=== PATIENT | female | born 1965 | race Hispanic/Latino ===

== ENCOUNTER 2018-07-30 06:25 | Day surgery (SDC) | payer OTHER ==
[2018-07-29 13:12] LABS: Absolute Lymphocytes (CBC) 1.6 K/uL (0.7-4.9); Absolute Monocytes 0.6 K/uL (0.1-1.3); Absolute Neutrophil 4.2 K/uL (1.8-8.0); Eosinophils % 1.4 % (0-4.4); Hematocrit 40.8 % (36.0-45.0); Lymphocytes % 24.3 % (15.3-44.8); MPV 8.2 fL (7.6-11.3); Monocytes % 9.3 % (3.3-12.3); RBC Red Blood Cell Count 4.67 M/uL (3.86-4.86)
[2018-07-30] MEDS ORDERED: Ringers Lactate 1,000 ML IV ONE (06:46)
[2018-07-30] MEDS ORDERED: LIDOCAINE 1% MPF 5 ML VIAL ONE ×2 (06:48→07:10)
[2018-07-30] MEDS ORDERED: NA CHLORIDE 0.9% 1,000 ML ONE (06:59)
[2018-07-30] MEDS ORDERED: LIDOCAINE 1% W/EPI 1:100,000 MDV 50 ML VIAL ONE (06:59)
[2018-07-30] MEDS ORDERED: MIDAZOLAM HCL 2 MG/2 ML INJ ONE (07:09)
[2018-07-30] MEDS ORDERED: PROPOFOL 200 MG/20 ML VIAL IV ONE (07:09)
[2018-07-30] MEDS ORDERED: FENTANYL CITR 100 MCG/2 ML ONE (07:09)
[2018-07-30] MEDS ORDERED: SILVER NITRATE 1 APPL TOP ONE (07:17)
[2018-07-30] MEDS ORDERED: KETOROLAC 30 MG/ML INJ ONE (07:41)
[2018-07-30] MEDS ORDERED: ONDANSETRON 4 MG/2 ML VIAL ONE (07:49)
--- NOTE | 2018-07-30 07:52 | P.BOP ---
Preoperative diagnosis: Post menopausal bleeding Postoperative diagnosis: same, polyp Primary procedure: Hysteroscopy, D&C Estimated blood loss: Less than 5ml Anesthesia: General Complications: None Transferred to: Recovery Room Condition: Good
[2018-07-30] MEDS: MEPERIDINE HCL 50 MG/ML AMP ONE ×2 (07:54→07:59)
[2018-07-30] MEDS ORDERED: MEPERIDINE HCL 50 MG/ML AMP ONE (08:15)
[2018-07-30] MEDS ORDERED: PROMETHAZINE 25 MG/ML VIAL ONE (08:23)
--- NOTE | 2018-07-30 18:58 | DS ---
Date of Discharge: 07/30/2018 Final Hospital Discharge Diagnoses: 1.Postmenopausal vaginal bleeding. 2.Probable endometrial polyp. Hospital Course: The patient is a 52-year-old female, 3, para 1-0-2-1, status post menopause, who underwent hysteroscopy, D and C for an excision of endometrial polyp for postmenopaus al bleeding. She was dismissed to be seen back in my office in 2 weeks. Take ibuprofen for pain rel ief with usual post D and C activity restrictions. Lab work included hemoglobin and hematocrit of 13.7 and 40.8. AIMEE/JACK Voice ID: [id number] Report ID: [id number]
--- NOTE | 2018-07-30 18:58 | OP ---
Surgeon: Forrest Lopez MD Preoperative Diagnosis: Postmenopausal bleeding. Procedures: Hysteroscopy, excision of endometrial polyp, dilatation and curettage uterine endometriu m. Postoperative Diagnoses: Postmenopausal bleeding. Endometrial polyp. Description Of Procedure: After satisfactory level of general anesthesia was obtained, the patient w as prepped and draped in the usual fashion in high leg holders for vaginal surgery. Weighted speculu m was placed in the posterior vagina. Cervix visualized and grasped with single-tooth tenaculum. In troducing the hysteroscope, a small right endometrial polyp was noted. This was excised with a Shear s and grasping forceps through the hysteroscope. Otherwise, no other abnormalities of the endometriu m were noted. The hysteroscope removed. Curettage of the endometrium was productive of minimal tiss ue. The patient was awakened, taken to recovery room in satisfactory condition. Anesthesia: Tracy Daniel CRNA and Dr. Tiburcio Begum. AIMEE/JACK Voice ID: [id number] Report ID: [id number]
== END 2018-07-30 09:49 | disposition home or self-care (01) ==
LOC: OR 06:25
PROVIDERS: ATTEND Specialist
PROC: 0UDB7ZX Extraction of Endometrium, Via Natural or Artificial Opening, Diagnostic (ICD-10-PCS; 2018-07-30)
PROC: 0UB98ZX Excision of Uterus, Via Natural or Artificial Opening Endoscopic, Diagnostic (ICD-10-PCS; principal; 2018-07-30 07:30)
DX: N95.0 Postmenopausal bleeding (principal); N84.0 Polyp of corpus uteri; Z88.2 Allergy status to sulfonamides; Z88.8 Allergy status to other drugs, medicaments and biological substances; Z80.3 Family history of malignant neoplasm of breast; Z83.3 Family history of diabetes mellitus
CPT/HCPCS: 36415; 85025; 88305; J2175; J2250; J2405; J2550; J2704; J3010; J7030

== ENCOUNTER 2023-02-04 14:11 | Emergency (ER) | payer OTHER ==
[2023-02-04] MEDS ORDERED: dexAMETHasone 10 MG/ML VIAL ONE (15:03)
[2023-02-04] MEDS ORDERED: ONDANSETRON 4 MG/2 ML VIAL ONE (15:03)
[2023-02-04] MEDS ORDERED: MORPHINE 4 MG/ML SYR ONE ×2 (15:03→17:07)
[2023-02-04] MEDS ORDERED: KETOROLAC 30 MG/ML INJ ONE (15:03)
--- NOTE | 2023-02-04 15:13 | RAD REPORT ---
EXAM DESCRIPTION: CTSpine Lumbar Wo Con02/04/2023 2:55 pm CLINICAL HISTORY: Right leg radiculopathy. Back pain COMPARISON: None TECHNIQUE: Computed axial tomography lumbar spine was obtained with coronal and sagittal reconstruct ion. All CT scans are performed using dose optimization technique as appropriate and may include automated exposure control or mA/KV adjustment according to patient size. FINDINGS: L1-2 and L2-3 are unremarkable Mild spondylosis L3-4 Small disc bulge L4-5. Ligamentum flavum and facet hypertrophy. Thecal sac 8 millimeters. Mild narrow ing of the neural foramina bilaterally L5-S1 disc is thinned. Vacuum phenomena. Osteophytes. Disc bulge. Thecal sac measures approximately 7 millimeters. Moderate to marked narrowing of the neural foramina bilaterally. Facet hypertrophy No fracture or dislocation IMPRESSION: Negative for a lumbar fracture. Spondylosis most marked L5-S1 resulting in mild to moderate central and moderate to marked bilateral foraminal stenosis Nonemergent MRI may be helpful for further evaluation
--- NOTE | 2023-02-04 17:15 | ER ---
Nurse's Notes [facility] Name: Bobby Murillo Age: 57 yrs Sex: Female : 1965 Arrival Date: 02/04/2023 Time: 14:11 Bed 20 Private MD: Haley Holcomb Diagnosis: Other intervertebral disc disorders, lumbar region;Radiculopathy, lumbosacral region Presentation: 02/04 14:24 Chief complaint: Patient states: Low back pain that radiates to R leg, started on ph Thursday, was seen at PCP and prescribed Tylenol 3 and a muscle relaxer but meds are not helping, also reports nausea r/t pain. Coronavirus screen: Vaccine status: Patient reports receiving the 2nd dose of the covid vaccine. Ebola Screen: No symptoms or risks identified at this time. Initial Sepsis Screen: Does the patient meet any 2 criteria? No. Patient's initial sepsis screen is negative. Does the patient have a suspected source of infection? No. Patient's initial sepsis screen is negative. Risk Assessment: Do you want to hurt yourself or someone else? Patient reports no desire to harm self or others. Onset of symptoms was February 04, 2023. 14:24 Method Of Arrival: Wheelchair ph 14:24 Acuity: SPENCER 4 ph Triage Assessment: 14:38 General: Appears in no apparent distress. uncomfortable, Behavior is cooperative. Pain: db Complains of pain in back. 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 - Social history:: Smoking status: Patient denies any tobacco usage or history of. - Family history:: not pertinent. - Hospitalizations: : No recent hospitalization is reported. Screenin:00 [facility] ED Fall Risk Assessment (Adult) History of falling in the last 3 months, db including since admission No falls in past 3 months (0 pts) Confusion or Disorientation No (0 pts) Intoxicated or Sedated No (0 pts) Impaired Gait No (0 pts) Mobility Assist Device Used No (0 pt) Altered Elimination No (0 pt) Score/Fall Risk Level 0 - 2 = Low Risk Oriented to surroundings, Maintained a safe environment. Abuse screen: Denies threats or abuse. Denies injuries from another. Nutritional screening: No deficits noted. Tuberculosis screening: No symptoms or risk factors identified. Assessment: 14:45 Reassessment: Patient appears in no apparent distress at this time. Patient and/or db family updated on plan of care and expected duration. Pain level reassessed. Patient is alert, oriented x 3, equal unlabored respirations, skin warm/dry/pink. BACK PAIN. Musculoskeletal: Reports pain in back. 14:50 Reassessment: patient is in CT. db 15:30 Reassessment: Patient appears in no apparent distress at this time. Patient and/or db family updated on plan of care and expected duration. Pain level reassessed. Patient is alert, oriented x 3, equal unlabored respirations, skin warm/dry/pink. 16:30 Reassessment: Patient appears in no apparent distress at this time. Patient and/or db family updated on plan of care and expected duration. Pain level reassessed. Patient is alert, oriented x 3, equal unlabored respirations, skin warm/dry/pink. 17:33 Reassessment: Patient appears in no apparent distress at this time. Patient and/or db family updated on plan of care and expected duration. Pain level reassessed. Patient is alert, oriented x 3, equal unlabored respirations, skin warm/dry/pink. Patient states feeling better. Patient states symptoms have improved. General: Appears in no apparent distress. comfortable, Behavior is calm, cooperative. Neuro: Level of Consciousness is awake, alert, obeys commands, Oriented to person, place, time, situation. Vital Signs: 14:24 BP 148 / 89; Pulse 82; Resp 24; Temp 97.3; Pulse Ox 98% on R/A; Weight 123.38 kg; ph Height 5 ft. 4 in. ; Pain 10/10; 15:12 BP 141 / 78; Pulse 61; Resp 16; Pulse Ox 97% on R/A; db 16:00 BP 127 / 74; Pulse 68; Resp 16; Pulse Ox 98% on R/A; db 17:00 BP 119 / 63; Pulse 72; Resp 16; Pulse Ox 100% on R/A; db 14:24 Body Mass Index 46.69 (123.38 kg, 162.56 cm) ph 14:24 Pain Scale: Adult ph ED Course: 14:12 Patient arrived in ED. mr 14:12 Haley Holcomb is Private Physician. mr 14:26 Triage completed. ph 14:27 Arm band placed on Patient placed in an exam room. ph 14:30 Wilian Graham MD is Attending Physician. rn 14:38 Rufina Barrios, TIFFANY is Primary Nurse. db 14:57 CT Lumbar Spine Wo Con In Process Unspecified. EDMS 17:34 Patient has correct armband on for positive identification. Bed in low position. Call db light in reach. Side rails up X2. Provided Education on: DISCHARGE. 17:34 No provider procedures requiring assistance completed. IV discontinued, intact, db bleeding controlled, No redness/swelling at site. Administered Medications: 15:20 Drug: Decadron - Dexamethasone IVP 10 mg Route: IVP; Site: right antecubital; db 17:21 Follow up: Response: No adverse reaction db 15:22 Drug: Ondansetron IVP 4 mg Route: IVP; Site: right antecubital; db 17:20 Follow up: Response: No adverse reaction db 15:25 Drug: morphine IVP or IV 4 mg Route: IVP; Infused Over: 4 mins; Site: right antecubital;db 17:20 Follow up: Response: No adverse reaction db 15:28 Drug: Ketorolac IVP 30 mg Route: IVP; Site: right antecubital; db 17:21 Follow up: Response: No adverse reaction db 17:00 Drug: morphine IVP or IV 4 mg Route: IVP; Infused Over: 4 mins; Site: right antecubital;db 17:31 Follow up: Response: No adverse reaction db Medication: 17:35 VIS not applicable for this client. db Outcome: 17:15 Discharge ordered by . rn 17:35 Discharged to home ambulatory, with family. db 17:35 Condition: stable 17:35 Discharge instructions given to patient, Instructed on discharge instructions, follow up and referral plans. Prescriptions given X 1. 17:36 Patient left the ED. db Signatures: Dispatcher [employer] [facility] Yesika Figueroa mr Wilian Graham MD MD rn Hall, Patricia, RN RN Rufina Barrios RN RN db
--- NOTE | 2023-02-04 17:16 | EDPHYS ---
Physician Documentation [facility] Name: Bobby Murillo Age: 57 yrs Sex: Female : 1965 Arrival Date: 02/04/2023 Time: 14:11 Bed 20 Private MD: Haley Holcomb ED Physician Wilian Graham HPI: 02/04 15:56 This 57 yrs old Female presents to ER via Wheelchair with complaints of Back rn Pain, Leg Pain. 15:56 The patient presents with pain that is acute, with no known mechanism of injury. The rn symptoms are located in the low back. 15:56 Onset: The symptoms/episode began/occurred 2 day(s) ago. The pain radiates to the right rn leg. Associated signs and symptoms: Pertinent negatives: abdominal pain, chest pain, fever, hematuria, incontinence, numbness, tingling, urinary retention, weakness. Modifying factors: The patient symptoms are alleviated by nothing, the patient symptoms are aggravated by any movement, bending, walking. Severity of symptoms: At their worst the symptoms were moderate, in the emergency department the symptoms are unchanged. The patient has experienced a previous episode. The patient has been recently seen by a physician:. Pt reports hx of back injury, recently doing a lot of lifting and gardening, 2 days ago started with right lower back pain and radiates down right leg, seen yesterday and prescribed pain meds and muscle relaxer. No weakness. No bowel/bladder problems. . 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 - Social history:: Smoking status: Patient denies any tobacco usage or history of. - Family history:: not pertinent. - Hospitalizations: : No recent hospitalization is reported. ROS: 15:56 Constitutional: Negative for fever, chills, and weight loss, Cardiovascular: Negative rn for chest pain, palpitations, and edema, Respiratory: Negative for shortness of breath, cough, wheezing, and pleuritic chest pain, Abdomen/GI: Negative for abdominal pain, nausea, vomiting, diarrhea, and constipation, Back: + back pain MS/Extremity: + RLE pain Skin: Negative for injury, rash, and discoloration, Neuro: Negative for headache, weakness, numbness, tingling, and seizure. Exam: 15:56 Constitutional: This is a well developed, well nourished patient who is awake, alert, rn uncomfortable, but ambulatory to bathroom Cardiovascular: Regular rate and rhythm. No pulse deficits. Respiratory: + hyperventilating with pain Abdomen/GI: soft, non-tender Back: No spinal tenderness. MS/ Extremity: Pulses equal, no cyanosis. Neurovascular intact. Full, normal range of motion. Equal circumference. Neuro: Awake and alert, GCS 15, oriented to person, place, time, and situation. Motor strength 5/5 in all extremities. Sensory grossly intact. Antalgic gait. Vital Signs: 14:24 BP 148 / 89; Pulse 82; Resp 24; Temp 97.3; Pulse Ox 98% on R/A; Weight 123.38 kg; ph Height 5 ft. 4 in. ; Pain 10/10; 15:12 BP 141 / 78; Pulse 61; Resp 16; Pulse Ox 97% on R/A; db 16:00 BP 127 / 74; Pulse 68; Resp 16; Pulse Ox 98% on R/A; db 17:00 BP 119 / 63; Pulse 72; Resp 16; Pulse Ox 100% on R/A; db 14:24 Body Mass Index 46.69 (123.38 kg, 162.56 cm) ph 14:24 Pain Scale: Adult ph MDM: 14:31 Patient medically screened. rn 16:37 ED course: approx 50% reduction in pain. Will repeat morphine and likely dc home after rn that. . 17:13 Differential diagnosis: arthritis, chronic back pain, Osteoarthritis spinal injury, rn sprain, radiculopathy, disc herniation. Data reviewed: vital signs, nurses notes, radiologic studies, CT scan, and as a result, I will discharge patient. Counseling: I had a detailed discussion with the patient and/or guardian regarding: the historical points, exam findings, and any diagnostic results supporting the discharge/admit diagnosis, radiology results, the need for outpatient follow up, to return to the emergency department if symptoms worsen or persist or if there are any questions or concerns that arise at home. Response to treatment: the patient's symptoms have markedly improved after treatment, and as a result, I will discharge patient. Special discussion: I discussed with the patient/guardian in detail that at this point there is no indication for admission to the hospital. It is understood, however, that if the symptoms persist or worsen the patient needs to return immediately for re-evaluation. Based on the history and exam findings, there is no indication for further emergent testing or inpatient evaluation. I discussed with the patient/guardian the need to see the back specialist for further evaluation of the symptoms. I discussed with the patient/guardian the need to see the primary care provider for further evaluation of the symptoms. 17:14 Special discussion: Further emergent ED testing is not indicated at this point in time. rn I discussed with the patient/guardian in detail the need to arrange with the PCP or specialist further outpatient testing, MRI. 02/04 14:43 Order name: CT Lumbar Spine Wo Con; Complete Time: 15:15 rn 02/04 14:43 Order name: IV Start; Complete Time: 15:02 rn Administered Medications: 15:20 Drug: Decadron - Dexamethasone IVP 10 mg Route: IVP; Site: right antecubital; db 17:21 Follow up: Response: No adverse reaction db 15:22 Drug: Ondansetron IVP 4 mg Route: IVP; Site: right antecubital; db 17:20 Follow up: Response: No adverse reaction db 15:25 Drug: morphine IVP or IV 4 mg Route: IVP; Infused Over: 4 mins; Site: right antecubital;db 17:20 Follow up: Response: No adverse reaction db 15:28 Drug: Ketorolac IVP 30 mg Route: IVP; Site: right antecubital; db 17:21 Follow up: Response: No adverse reaction db 17:00 Drug: morphine IVP or IV 4 mg Route: IVP; Infused Over: 4 mins; Site: right antecubital;db 17:31 Follow up: Response: No adverse reaction db Disposition Summary: 02/04/23 17:15 Discharge Ordered Location: Home rn Problem: new rn Symptoms: have improved rn Condition: Stable rn Diagnosis - Other intervertebral disc disorders, lumbar region rn - Radiculopathy, lumbosacral region rn Followup: rn - With: Private Physician - When: As needed - Reason: Recheck today's complaints, Re-evaluation by your physician Discharge Instructions: - Discharge Summary Sheet rn - Lumbosacral Radiculopathy rn - Pinched Nerve rn - Back Exercises rn Forms: - Medication Reconciliation Form rn - Thank You Letter rn - Antibiotic internal investigator - Prescription Opioid Use rn - Patient Portal Instructions rn Prescriptions: - Medrol (Castillo) 4 mg Oral Tablets, Dose Pack - take 1 tablet by ORAL route as directed - follow package instructions; 1 rn packet; Refills: 0, Product Selection Permitted Signatures: Dispatcher [employer] Wilian Moon MD MD rn Hall, Patricia, RN RN Rufina Mayorga RN RN db
[2023-02-04 17:43] VITALS: TEMP 97.3
[2023-02-04 17:57] VITALS: BP 119/63; O2SAT 100
== END 2023-02-04 17:36 | disposition home or self-care (01) ==
LOC: ER 14:11
DX: M54.17 Radiculopathy, lumbosacral region (principal); M51.86 Other intervertebral disc disorders, lumbar region; I10 Essential (primary) hypertension; Z88.1 Allergy status to other antibiotic agents; Z88.2 Allergy status to sulfonamides
CPT/HCPCS: 72131; J1100; J2405

== ENCOUNTER 2023-06-11 17:09 | Emergency (ER) | payer OTHER ==
--- OUTSIDE RECORDS SUMMARY | 2023-06-11 17:11 | XMS REPORT | Continuity of Care Document ---
:1965 Author Organization [facility] t Address [address] [place] [address] [place] [id number] Care Team Providers Name Role Phone Vincent Attending Clinician Unavailable Vincent Admitting Clinician Unavailable Payers Payer Name Policy Type Policy Number Effective Date Expiration Date [facility] [id number] (PPO) Problems This patient has no known problems. Allergies, Adverse Reactions, Alerts This patient has no known allergies or adverse reactions. Medications This patient has no known medications. Procedures This patient has no known procedures. Encounters Start End Encounter Admission Attending Care Care Encounter Source Date/Time Date/Time Type Type Clinicians Facility Department ID 2023-02-12 2023-02-12 Outpatient [facility] AO [id number] [place] 00:00:00 00:00:00 [facility] [id number] [facility] 2023-02-10 2023-02-10 Outpatient [facility] [id number] [place] 00:00:00 00:00:00 Davi [id number] [facility] Results This patient has no known results.
[2023-06-11] MEDS ORDERED: LIDOCAINE 1% MPF 5 ML VIAL ONE (17:32)
[2023-06-11] MEDS ORDERED: TDAP (DIPHTH,PERTUSS(ACELL),TET VAC) 0.5 ML VIAL IMVAC ONE (17:42)
--- NOTE | 2023-06-11 18:01 | ER ---
Nurse's Notes [facility] Name: Bobby Murillo Age: 57 yrs Sex: Female : 1965 Arrival Date: 06/11/2023 Time: 17:09 Bed 14 Private MD: Diagnosis: Laceration without foreign body of left thumb without damage to nail Presentation: 06/11 17:10 Chief complaint: Patient states: STATES CUT THUMB WHILE CUTTING CHEESE AT HOME. NOTED db LEFT THUMB LACERATION. GAUZE TO THUMB TO CONTROL BLEEDING. Coronavirus screen: Vaccine status: Patient reports receiving the 2nd dose of the covid vaccine. Client denies travel out of the [place] in the last 14 days. At this time, the client does not indicate any symptoms associated with coronavirus-19. Ebola Screen: Patient negative for fever greater than or equal to 101.5 degrees Fahrenheit, and additional compatible Ebola Virus Disease symptoms Patient denies exposure to infectious person. Patient denies travel to an Ebola-affected area in the 21 days before illness onset. No symptoms or risks identified at this time. Initial Sepsis Screen: Does the patient meet any 2 criteria? No. Patient's initial sepsis screen is negative. Does the patient have a suspected source of infection? No. Patient's initial sepsis screen is negative. Risk Assessment: Do you want to hurt yourself or someone else? Patient reports no desire to harm self or others. Onset of symptoms was June 11, 2023. 17:10 Method Of Arrival: Ambulatory db 17:10 Acuity: SPENCER 4 db Triage Assessment: 17:21 General: Appears in no apparent distress. comfortable, Behavior is calm, cooperative. db Pain: Complains of pain in left hand. Neuro: Level of Consciousness is awake, alert, obeys commands, Oriented to person, place, time, situation. Respiratory: Airway is patent Respiratory effort is even, unlabored, Respiratory pattern is regular, symmetrical. Historical: - Allergies: 17:21 Bactrim; db 17:21 Cephalexin; db 17:21 sulfamethoxazole-trimethoprim; db - Home Meds: 17:21 losartan oral [Active]; Furosemide Oral [Active]; db - PMHx: 17:21 Hypertensive disorder; Hypercholesterolemia; db Historical Immunization: - Administered Vaccines 18:04 Brantley PO 10 mg-325 mg 1 tabs db 17:32 Tetanus-Diphtheria Toxoid IM Adult 0.5 ml db Bpm Analyst: [employer]; Exp: Sat Dec 10 2024; Lot #: [id number]; Series: 1 of 1; Patient Consent: Obtained; Date/Time: ; Source Name: Bobby Murillo; Source Relationship: Self; Address Information: [address] [place] [address], [facility] [address]; ; Education: Provided; VIS Presented Date: ; VIS Publication: Tetanus/Diphtheria (Td) Vaccine VIS 10/28/2016 (historic) 17:24 Lidocaine Infiltration (1 %) 1 vials db - Immunization history:: Last tetanus immunization: unknown. - Social history:: Smoking status: Patient denies any tobacco usage or history of. Screenin:16 [facility] ED Fall Risk Assessment (Adult) History of falling in the last 3 months, db including since admission No falls in past 3 months (0 pts) Score/Fall Risk Level 0 - 2 = Low Risk Oriented to surroundings, Maintained a safe environment. Abuse screen: Denies threats or abuse. Denies injuries from another. Nutritional screening: No deficits noted. Tuberculosis screening: No symptoms or risk factors identified. Assessment: 17:23 Reassessment: SEE TRIAGE FOR INITIAL ASSESSMENT. db 18:16 Reassessment: Patient appears in no apparent distress at this time. Patient and/or db family updated on plan of care and expected duration. Pain level reassessed. Patient is alert, oriented x 3, equal unlabored respirations, skin warm/dry/pink. LACERATION REPAIR DONE. NEURO INTACT Patient states feeling better. Vital Signs: 17:10 BP 146 / 83; Pulse 97; Resp 18; Temp 97.9(TE); Pulse Ox 100% on R/A; Weight 122.47 kg; db Height 5 ft. 4 in. ; 18:07 BP 146 / 83; Pulse 96; Resp 16; Pulse Ox 98% on R/A; db 17:10 Body Mass Index 46.34 (122.47 kg, 162.56 cm) db ED Course: 17:10 Patient arrived in ED. rg4 17:11 Donna Pettit FNP-C is PHCP. kb 17:11 Odin Ortega MD is Attending Physician. kb 17:11 Attending Physician role handed off by Odin Ortega MD ms3 17:11 Phillip Duncan DO is Attending Physician. ms3 17:13 Rufina Barrios, TIFFANY is Primary Nurse. db 17:21 Triage completed. db 17:21 Arm band placed on Patient placed in an exam room. db 18:00 Assist provider with laceration repair on left hand, LEFT THUMB. Wound care: to db laceration located on left handLEFT THUMB Patient tolerated well. 18:16 Patient has correct armband on for positive identification. Bed in low position. Call db light in reach. Side rails up X 1. Provided Education on: DISCHARGE. 18:16 Patient did not have IV access during this emergency room visit. db Administered Medications: 17:24 Drug: Lidocaine Infiltration (1 %) 1 vials 5 ml Infiltration once; to bedside {Note: db GIVEN BY PROVIDER.} Volume: 5 ml; Route: Infiltration; 18:18 Follow up: Response: No adverse reaction db 17:32 Drug: Tetanus-Diphtheria Toxoid IM Adult 0.5 ml IM once; Provide Vaccine Information db Statement (VIS). {Bpm Analyst: [employer]; Exp: Sat Dec 10 2024; Lot #: [id number]; Series: 1 of ; Patient Consent: Obtained; Date/Time: ; Source Name: Bobby Murillo; Source Relationship: Self; Address Information: [address] [place] [address]; ; Education: Provided; VIS Presented Date: ; VIS Publication: Tetanus/Diphtheria (Td) Vaccine VIS 10/28/2016 (historic)} Route: IM; Site: right deltoid; 18:18 Follow up: Response: No adverse reaction db 18:04 Drug: Brantley PO 10 mg-325 mg 1 tabs PO once Route: PO; db 18:18 Follow up: Response: No adverse reaction db Medication: 18:16 VIS not applicable for this client. db Outcome: 18:00 Discharge ordered by . kb 18:16 Discharged to home ambulatory, with friend, db 18:16 Condition: stable 18:16 Discharge instructions given to patient, Instructed on discharge instructions, follow up and referral plans. Prescriptions given X 1, 18:18 Patient left the ED. db Signatures: Donna Pettit, MARISOL-C WOUND NURSE-Yesenia Reddy rg4 Phillip Duncan, DO STRINGER ms3 Rufina Barrios, RN RN db
--- NOTE | 2023-06-11 18:01 | EDPHYS ---
Physician Documentation [facility] Name: Bobby Murillo Age: 57 yrs Sex: Female : 1965 Arrival Date: 06/11/2023 Time: 17:09 Bed 14 Private MD: ED Physician Phillip Duncan HPI: 06/11 18:17 This 57 yrs old Female presents to ER via Ambulatory with complaints of Finger kb Laceration. 18:17 Patient is a 57-year-old female who presents for laceration to left thumb that occurred kb while trying to open a package of cheese with a knife. Bleeding controlled. Historical: - Allergies: 17:21 Bactrim; db 17:21 Cephalexin; db 17:21 sulfamethoxazole-trimethoprim; db - Home Meds: 17:21 losartan oral [Active]; Furosemide Oral [Active]; db - PMHx: 17:21 Hypertensive disorder; Hypercholesterolemia; db - Immunization history:: Last tetanus immunization: unknown. - Social history:: Smoking status: Patient denies any tobacco usage or history of. ROS: 18:17 Constitutional: Negative for fever, chills, and weight loss, kb 18:17 Skin: Positive for laceration(s), 18:17 All other systems are negative, Exam: 18:17 Constitutional: This is a well developed, well nourished patient who is awake, alert, kb and in no acute distress. Head/Face: Normocephalic, atraumatic. ENT: Moist Mucous membranes Respiratory: Respirations even and unlabored. No increased work of breathing. Talking in full sentences MS/ Extremity: Pulses equal, no cyanosis. Neurovascular intact. Full, normal range of motion. Neuro: Awake and alert, GCS 15, oriented to person, place, time, and situation. Moves all extremities. Normal gait. 18:17 Skin: injury, laceration(s), the wound is approximately 2 cm(s), of the palmar aspect of distal phalanx of left thumb, that can be described as clean, no foreign body, linear, without bleeding, Vital Signs: 17:10 BP 146 / 83; Pulse 97; Resp 18; Temp 97.9(TE); Pulse Ox 100% on R/A; Weight 122.47 kg; db Height 5 ft. 4 in. ; 18:07 BP 146 / 83; Pulse 96; Resp 16; Pulse Ox 98% on R/A; db 17:10 Body Mass Index 46.34 (122.47 kg, 162.56 cm) db Laceration: 17:59 Wound Repair of 2cm ( 0.8in ) subcutaneous laceration to palmar aspect of distal kb phalanx of left thumb. Irregularly shaped.. Distal neuro/vascular/tendon intact. Anesthesia: Wound infiltrated with 1.5 mls of 1% lidocaine. Wound prep: Extensive cleansing with hibiclenz by me, Wound irrigation with saline by me. Skin closed with 4 5-0 Prolene using simple sutures and sterile technique. Patient tolerated well. MDM: 17:11 Patient medically screened. kb 18:18 Differential diagnosis: superficial laceration, tendon injury, vascular injury. Data kb reviewed: vital signs, nurses notes. Test considered but Not performed: X-ray: X-ray of hand considered but laceration is superficial, patient has full range of motion of thumb. Counseling: I had a detailed discussion with the patient and/or guardian regarding the historical points, exam findings, and any diagnostic results supporting the discharge/admit diagnosis, the need for outpatient follow up, a family practitioner, to return to the emergency department if symptoms worsen or persist or if there are any questions or concerns that arise at home. 06/11 17:16 Order name: Dressing - Wound; Complete Time: 17:19 kb 06/11 17:16 Order name: Gloves, Sterile; Complete Time: 17:19 kb 06/11 17:16 Order name: Prolene, Sutures; Complete Time: 17:19 kb 06/11 17:16 Order name: Setup Suture Tray; Complete Time: 17:19 kb Administered Medications: 17:24 Drug: Lidocaine Infiltration (1 %) 1 vials 5 ml Infiltration once; to bedside {Note: db GIVEN BY PROVIDER.} Volume: 5 ml; Route: Infiltration; 18:18 Follow up: Response: No adverse reaction db 17:32 Drug: Tetanus-Diphtheria Toxoid IM Adult 0.5 ml IM once; Provide Vaccine Information db Statement (VIS). {[employer] Machine Operator: [id number]; Exp: Sat Dec 10 2024; Lot #: [id number]; Series: 1 of 1; Patient Consent: Obtained; Date/Time: ; Source Name: Bobby Murillo; Source Relationship: Self; Address Information: [address] [place] [address] [address], [place] [address]; ; Education: Provided; VIS Presented Date: ; VIS Publication: Tetanus/Diphtheria (Td) Vaccine VIS 10/28/2016 (historic)} Route: IM; Site: right deltoid; 18:18 Follow up: Response: No adverse reaction db 18:04 Drug: [place] PO 10 mg-325 mg 1 tabs PO once Route: PO; db 18:18 Follow up: Response: No adverse reaction db Disposition: 06/12 11:23 I was immediately available on-site in the Emergency Department for consultation in the ms3 care of the patient. Disposition Summary: 06/11/23 18:00 Discharge Ordered Notes: Location: Home kb Condition: Stable kb Diagnosis - Laceration without foreign body of left thumb without damage to nail kb Followup: kb - With: Emergency Department - When: As needed - Reason: Worsening of condition Followup: kb - With: Private Physician - When: 2 - 3 days - Reason: Recheck today's complaints, Continuance of care, Re-evaluation by your physician Discharge Instructions: - Discharge Summary Sheet kb - Laceration Care, Adult, [id number] kb Forms: - Medication Reconciliation Form kb - Thank You Letter kb - Antibiotic Education kb - Prescription Opioid Use kb - Patient Portal Instructions kb - Leadership Thank You Letter kb Prescriptions: - Diclofenac Sodium 75 mg Oral tablet, delayed release (enteric coated) - take 1 tablet ORAL route 2 times per day As needed; 30 tablet; Refills: 0, kb Product Selection Permitted Signatures: Donna Pettit FNP-C FNP-Phillip Yates DO DO ms3 Rufina Barrios, RN RN db
[2023-06-11] MEDS ORDERED: HYDROCODONE/APAP 10/325 TAB ONE (18:13)
[2023-06-11 18:31] VITALS: BP 146/83; TEMP 97.9
[2023-06-11 18:32] VITALS: O2SAT 98
== END 2023-06-11 18:18 | disposition home or self-care (01) ==
LOC: ER 17:09
PROC: 0HQGXZZ Repair Left Hand Skin, External Approach (ICD-10-PCS; principal; 2023-06-11)
PROC: 3E0234Z Introduction of Serum, Toxoid and Vaccine into Muscle, Percutaneous Approach (ICD-10-PCS; 2023-06-11)
DX: S61.012A Laceration without foreign body of left thumb without damage to nail, initial encounter (principal); W26.0XXA Contact with knife, initial encounter; Y93.89 Activity, other specified; Y92.9 Unspecified place or not applicable; Z23 Encounter for immunization
CPT/HCPCS: 90471 ×2; 99284; 12001; 90714; J2001